=== PATIENT | male | born 1975 | race Caucasian/White ===

== ENCOUNTER 2016-12-31 22:53 | Emergency (ER) | payer MEDICAID ==
[~2016-12-31] VITALS: Ht 180.3 cm; Wt 84.9 kg
[~2016-12-31 22:53] MED LIST: TRAM50TA PO
[2016-12-31 23:01] VITALS: BP 136/82; PULSE 72; RESP 16; TEMP 99; O2SAT 97
--- NOTE | 2016-12-31 23:36 | PD ---
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 no other assoc symptoms, no alleviating/aggravating factors other than stated above PFSH Past Medical History Arthritis: No Asthma: No Bipolar Disorder: Yes Anxiety: Yes Depression: Yes Heart Rhythm Problems: No Cancer: No Cardiovascular Problems: No High Cholesterol: No Chemotherapy: No Chest Pain: No Congestive Heart Failure: No COPD: No Cerebrovascular Accident: No Diabetes: No Diminished Hearing: No Endocrine: No GERD: No Genitourinary: No Hepatitis: No Hiatal Hernia: No Immune Disorder: No Kidney Stones: No Musculoskeletal: No Neurologic: No Psychiatric: Yes (PTSD and Bipolar) Reproductive: No Respiratory: No Immunizations Current: Yes Migraines: No Radiation Therapy: No Renal Failure: No Seizures: No Sickle Cell Disease: No Sleep Apnea: No Thyroid Disease: No Ulcer: No Past Surgical History Abdominal Surgery: No AICD: No Arteriovenous Shunt: No Cardiac Surgery: No Ear Surgery: No Endocrine Surgery: No Eye Surgery: No Genitourinary Surgery: No Gynecologic Surgery: No Insulin Pump: No Joint Replacement: No Oral Surgery: Yes (NOSE SURGERY R/T INJURY) Pacemaker: No Thoracic Surgery: No Other Surgery: Yes (NOSE) Social History Alcohol Use: Yes (SOCIALLY) Tobacco Use: Yes (1 PPD) Substance Use: No Allergies-Medications (Allergen,Severity, Reaction): Coded Allergies: No Known Allergies (Verified , 12/31/16) Reported Meds & Prescriptions Reported Meds & Active Scripts Active No Active Prescriptions or Reported Medications Review of Systems Except as stated in HPI: all other systems reviewed are Neg Respiratory: Positive: Cough Physical Exam Narrative GENERAL: SKIN: Warm and dry. HEAD: Atraumatic. Normocephalic. EYES: Pupils equal and round. No scleral icterus. No injection or drainage. ENT: No nasal bleeding or discharge. Mucous membranes pink and moist. NECK: Trachea midline. No JVD. CARDIOVASCULAR: Regular rate and rhythm. RESPIRATORY: No accessory muscle use. Clear to auscultation. Breath sounds equal bilaterally. GASTROINTESTINAL: Abdomen soft, non-tender, nondistended. MUSCULOSKELETAL: Extremities without clubbing, cyanosis, or edema. No obvious deformities. NEUROLOGICAL: Awake and alert. No obvious cranial nerve deficits. Motor grossly within normal limits. Five out of 5 muscle strength in the arms and legs. Normal speech. PSYCHIATRIC: Appropriate mood and affect; insight and judgment normal. 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 Prov: Rafael Malcolm MD 12/31/16 Ondansetron Odt (Zofran Odt) 4 Mg Tab 4 MG SL Q6HR Y for Nausea/Vomiting, #30 TAB 0 Refills Prov: Rafael Malcolm MD 12/31/16 Disposition: 01 DISCHARGE HOME Condition: Stable Rafael Malcolm MD Dec 31, 2016 23:36
[2016-12-31 23:46] VITALS: RESP 18; O2SAT 97
[2016-12-31] MEDS ORDERED: ZITHTAB PO (23:55)
[2016-12-31] MEDS ORDERED: ZOFR4TAB3 SL (23:55)
[2017-01-01] MEDS ORDERED: AZITHROMYCIN 250 MG TAB PO ONE
[2017-01-01] MEDS ORDERED: ONDANSETRON ODT 4 MG TAB PO ONE
== END 2017-01-01 00:22 | disposition home or self-care (01) ==
LOC: PHED 22:53
DX: J20.9 Acute bronchitis, unspecified (principal); F17.200 Nicotine dependence, unspecified, uncomplicated
CPT/HCPCS: 99284

== ENCOUNTER 2017-01-15 09:32 | Emergency (ER) | payer MEDICAID ==
[~2017-01-15] VITALS: Ht 180.3 cm; Wt 84.0 kg
[~2017-01-15 09:32] MED LIST changes: -TRAM50TA PO; +ZITHTAB PO; +ZOFR4TAB3 SL
[2017-01-15 09:33] VITALS: BP 131/75; PULSE 64; RESP 16; TEMP 97.8; O2SAT 98
[2017-01-15] MEDS ORDERED: KETOROLAC TROMETHAMINE 60 MG/2 ML (IM) VIAL IM ONE (11:15)
--- NOTE | 2017-01-15 11:18 | PD ---
HPI Chief Complaint: Musculoskeletal Complaint Time Seen by Provider: 11:01 Travel History International Travel<30 days: No Contact w/Intl Traveler<30days: No Traveled to known affect area: No History of Present Illness HPI 41-year-old male with lower back pain and hip pain since Sunday after moving a refrigerator. He says that he was in the middle of moving a refrigerator and turned & twisted and ended up developing some pain in his lower back with some radiation on his right sacroiliac joint to his knee. Denies fevers, chills, chest pain, short of breath, abdominal pain, flank pain. He said this never happened before. He denies loss of bowel or bladder function and saddle anesthesia. Also states he is having pain in the right groin without radiation , bulging, or worsening pain. He says the pain is moderate and relieved with rest. PFSH Past Medical History Arthritis: No Asthma: No Bipolar Disorder: Yes Anxiety: Yes Depression: Yes Heart Rhythm Problems: No Cancer: No Cardiovascular Problems: No High Cholesterol: No Chemotherapy: No Chest Pain: No Congestive Heart Failure: No COPD: No Cerebrovascular Accident: No Diabetes: No Diminished Hearing: No Endocrine: No Gastrointestinal Disorders: No GERD: No Genitourinary: No Headaches: No Hepatitis: No Hiatal Hernia: No Heparin Induced Thrombocytopen: No Hypertension: No Immune Disorder: No Implanted Vascular Access Dvce: No Kidney Stones: No Musculoskeletal: No Neurologic: No Psychiatric: Yes (PTSD and Bipolar) Reproductive: No Respiratory: No Immunizations Current: Yes Migraines: No Radiation Therapy: No Renal Failure: No Seizures: No Sickle Cell Disease: No Sleep Apnea: No Thyroid Disease: No Ulcer: No Past Surgical History Abdominal Surgery: No AICD: No Arteriovenous Shunt: No Cardiac Surgery: No Ear Surgery: No Endocrine Surgery: No Eye Surgery: No Genitourinary Surgery: No Gynecologic Surgery: No Insulin Pump: No Joint Replacement: No Neurologic Surgery: No Oral Surgery: Yes (NOSE SURGERY R/T INJURY) Pacemaker: No Thoracic Surgery: No Other Surgery: Yes (NOSE) Social History Alcohol Use: Yes (SOCIALLY) Tobacco Use: Yes (1 PPD) Substance Use: No Allergies-Medications (Allergen,Severity, Reaction): Coded Allergies: No Known Allergies (Verified , 01/15/17) Reported Meds & Prescriptions Reported Meds & Active Scripts Active Tizanidine (Tizanidine HCl) 2 Mg Tab 2 Mg PO TID 5 Days Physical Exam Narrative GENERAL: Well-developed well-nourished appears older than stated age SKIN: Focused skin assessment warm/dry. HEAD: Atraumatic. Normocephalic. EYES: Pupils equal and round. No scleral icterus. No injection or drainage. ENT: No nasal bleeding or discharge. Mucous membranes pink and moist. NECK: Trachea midline. No JVD. CARDIOVASCULAR: Regular rate and rhythm. No murmur appreciated. RESPIRATORY: No accessory muscle use. Clear to auscultation. Breath sounds equal bilaterally. GASTROINTESTINAL: Abdomen soft, non-tender, nondistended. Hepatic and splenic margins not palpable. MUSCULOSKELETAL: No obvious deformities. No clubbing. No cyanosis. No edema. Right leg: Able to flex leg at the hip however with difficulty and grimace. Also has some pain to palpation in the right groin area. BACK: no step offs, mild TTP lower lumbar and SI joint region. no crepitus. NEUROLOGICAL: Awake and alert. No obvious cranial nerve deficits. Motor grossly within normal limits. Normal speech. Neurosensory intact. PSYCHIATRIC: Appropriate mood and affect; insight and judgment normal. Data Data Last Documented VS Vital Signs Date Time Temp Pulse Resp B/P (MAP) Pulse Ox O2 Delivery O2 Flow Rate FiO2 01/15/17 12:20 16 01/15/17 09:33 97.8 64 131/75 (93) 98 Orders Orders Spine, Lumbar - Ltd (Ap & Lat) (01/15/17 ) Ketorolac Inj (Toradol Inj) (01/15/17 11:15) Pelvis, Ap Only (Routine) (01/15/17 ) MDM Medical Decision Making Medical Screen Exam Complete: Yes Emergency Medical Condition: Yes Differential Diagnosis Acute lumbago versus sciatica versus herniated disc Narrative Course 41-year-old male with lower back pain and hip pain since Sunday after moving a refrigerator. He says that he was in the middle of moving a refrigerator and turned & twisted and ended up developing some pain in his lower back with some radiation on his right sacroiliac joint to his knee. Denies fevers, chills, chest pain, short of breath, abdominal pain, flank pain. He said this never happened before. He denies loss of bowel or bladder function and saddle anesthesia. Also states he is having pain in the right groin without radiation , bulging, or worsening pain. He says the pain is moderate and relieved with rest. Imaging demonstrated no acute process. This is likely sciatica, piriformis syndrome, or muscle spasms. I reassured patient and informed him that this pain should be reduced within a couple of days with light stretching and muscle relaxers. I cautioned him on the side effects of muscle relaxers. He should follow up with his PCP. I advised him when to return to the ED. Diagnosis Primary Impression: Acute back pain Qualified Codes: M54.41 - Lumbago with sciatica, right side Departure Forms: Tests/Procedures, Work Release Enter return to work date: Jan 19, 2017 Additional Instructions: Follow-up with her primary care physician for further treatment and evaluation. There were no fractures on the xrays. If your back pain persists or worsens, or you develop increased numbness tingling and weakness of your legs, return to the emergency department for further treatment & evaluation. Recommend light stretches and heat. May use motrin or tylenol for pain relief per package instructions. Use the muscle relaxer sparingly for muscle spasms in leg. This medication may cause drowsiness. Scripts Tizanidine (Tizanidine) 2 Mg Tab 2 MG PO TID for Muscle Spasm for 5 Days, #15 TAB 0 Refills Prov: Marisa Hunter 01/15/17 Disposition: 01 DISCHARGE HOME Condition: Stable Marisa Hunter Jan 15, 2017 11:18
--- NOTE | 2017-01-15 11:42 | RADRPT ---
EXAM DATE/TIME: 01/15/2017 11:25 [facility] COMPARISON: No previous studies available for comparison. INDICATIONS : Right groin pain after moving furniture MEDICAL HISTORY : None. SURGICAL HISTORY : None. ENCOUNTER: Initial ACUITY: 3 days PAIN SCORE: 6/10 LOCATION: Right inguinal FINDINGS: Two view examination was performed. There are five non-rib bearing vertebral bodies. The vertebral bodies are in normal alignment without evidence of subluxation or scoliosis. The disc spaces are marija ntained. The pedicles are intact. Bony mineralization is normal. No fracture is identified. CONCLUSION: 1. No acute fracture or subluxation. Adrien Quiñones MD on January 15, 2017 at 11:40 Board Certified Radiologist. This report was verified electronically.
--- NOTE | 2017-01-15 11:43 | RADRPT ---
EXAM DATE/TIME: 01/15/2017 11:27 [facility] COMPARISON: No previous studies available for comparison. INDICATIONS : Low back pain after moving furniture. MEDICAL HISTORY : None. SURGICAL HISTORY : None. ENCOUNTER: Initial ACUITY: 3 days PAIN SCORE: 6/10 LOCATION: Right inguinal FINDINGS: A single frontal view of the pelvis demonstrates no evidence of fracture. The bony pelvic ring is in tact. Bony mineralization is normal. Small calcification in the pelvis likely reflects a phlebolith . The soft tissues are intact. CONCLUSION: 1. No acute fracture or dislocation. Adrien Quiñones MD on January 15, 2017 at 11:41 Board Certified Radiologist. This report was verified electronically.
[2017-01-15] MEDS ORDERED: TIZA2TAB PO (12:13)
[2017-01-15 12:20] VITALS: RESP 16
== END 2017-01-15 12:30 | disposition home or self-care (01) ==
LOC: PHED 09:32 → PHEFT 12:30
DX: M54.41 Lumbago with sciatica, right side (principal)
CPT/HCPCS: 72100; 72170; 96372; 99284; J1885

== ENCOUNTER 2017-05-21 12:48 | Emergency (ER) | payer SELFPAY ==
[~2017-05-21] VITALS: Ht 180.3 cm; Wt 81.5 kg
[~2017-05-21 12:48] MED LIST changes: +TIZA2TAB PO; -ZITHTAB PO; -ZOFR4TAB3 SL
[2017-05-21 12:51] VITALS: BP 134/76; PULSE 77; RESP 16; TEMP 98.1; O2SAT 98
[2017-05-21] MEDS ORDERED: AZIT250T3 PO (14:46)
--- NOTE | 2017-05-21 14:46 | PD ---
HPI Chief Complaint: Cold / Flu Symptoms Time Seen by Provider: 14:19 Travel History International Travel<30 days: No Contact w/Intl Traveler<30days: No Traveled to known affect area: No History of Present Illness HPI This is a 41-year-old male here with productive cough times one week. He is reporting green colored phlegm. No chest pain or shortness of breath. Subjective fevers. Symptom severity is moderate. No aggravating or alleviating factors. PFSH Past Medical History Arthritis: No Asthma: No Bipolar Disorder: Yes Anxiety: Yes Depression: Yes Heart Rhythm Problems: No Cancer: No Cardiovascular Problems: No High Cholesterol: No Chemotherapy: No Chest Pain: No Congestive Heart Failure: No COPD: No Cerebrovascular Accident: No Diabetes: No Diminished Hearing: No Endocrine: No Gastrointestinal Disorders: No GERD: No Genitourinary: No Headaches: No Hepatitis: No Hiatal Hernia: No Heparin Induced Thrombocytopen: No Hypertension: No Immune Disorder: No Implanted Vascular Access Dvce: No Kidney Stones: No Musculoskeletal: No Neurologic: No Psychiatric: Yes (PTSD and Bipolar) Reproductive: No Respiratory: No Immunizations Current: Yes Migraines: No Radiation Therapy: No Renal Failure: No Seizures: No Sickle Cell Disease: No Sleep Apnea: No Thyroid Disease: No Ulcer: No Tetanus Vaccination: > 5 Years Influenza Vaccination: No Past Surgical History Abdominal Surgery: No AICD: No Arteriovenous Shunt: No Cardiac Surgery: No Ear Surgery: No Endocrine Surgery: No Eye Surgery: No Genitourinary Surgery: No Gynecologic Surgery: No Insulin Pump: No Joint Replacement: No Neurologic Surgery: No Oral Surgery: Yes (NOSE SURGERY R/T INJURY) Pacemaker: No Thoracic Surgery: No Other Surgery: Yes (NOSE) Social History Alcohol Use: Yes (SOCIALLY) Tobacco Use: Yes (1 PPD) Substance Use: No Allergies-Medications (Allergen,Severity, Reaction): Coded Allergies: No Known Allergies (Verified Adverse Reaction, Unknown, 05/21/17) Reported Meds & Prescriptions Reported Meds & Active Scripts Active No Active Prescriptions or Reported Medications Review of Systems Except as stated in HPI: all other systems reviewed are Neg General / Constitutional: Positive: Fever HENT: No: Headaches Cardiovascular: No: Chest Pain or Discomfort Respiratory: Positive: Cough Gastrointestinal: No: Abdominal Pain Genitourinary: No: Dysuria Physical Exam Narrative GENERAL: Alert and well-appearing 41-year-old male. SKIN: Warm and dry. No rash HEAD: Normocephalic. EYES: No injection or drainage. Ear/nose/throat: No TM erythema. Clear nasal discharge. Mild pharyngeal erythema without tonsillar hypertrophy or exudate. NECK: Supple. No meningismus CARDIOVASCULAR: Regular rate and rhythm RESPIRATORY: Breath sounds equal bilaterally. No accessory muscle use. Rhonchorous cough GASTROINTESTINAL: Abdomen soft, non-tender, nondistended. MUSCULOSKELETAL: No cyanosis, or edema. BACK: No CVA tenderness. Data Data Last Documented VS Vital Signs Date Time Temp Pulse Resp B/P (MAP) Pulse Ox O2 Delivery O2 Flow Rate FiO2 05/21/17 12:51 98.1 77 16 134/76 (95) 98 MDM Medical Decision Making Medical Screen Exam Complete: Yes Emergency Medical Condition: Yes Differential Diagnosis Bronchitis, pneumonia, influenza Narrative Course 41-year-old male here with reported productive cough and fever 1 week. He is nontoxic appearing. He'll be treated with azithromycin Diagnosis Primary Impression: Bronchitis Referrals: Primary Care Physician Departure Forms: Tests/Procedures, Work Release Enter return to work date: May 23, 2017 Additional Instructions: Medication as directed. Rest and stay well hydrated. Scripts Azithromycin (Azithromycin) 250 Mg Tab 250 MG PO DIRECTED for Infection, #6 TAB 0 Refills Take 2 tabs (500 mg) on day 1 then 1 tab daily x 4 days. Prov: Dee Dee Bauman 05/21/17 Disposition: 01 DISCHARGE HOME Condition: Stable Dee Dee Bauman May 21, 2017 14:46
== END 2017-05-21 14:59 | disposition home or self-care (01) ==
LOC: PHEFT 12:48
DX: J40 Bronchitis, not specified as acute or chronic (principal); F17.210 Nicotine dependence, cigarettes, uncomplicated
CPT/HCPCS: 96372; 99283

== ENCOUNTER 2017-08-20 09:57 | Emergency (ER) | payer SELFPAY, OTHER | END 2017-08-20 10:52 | disposition home or self-care (01) | LOC: PHEFT 09:57 | DX: L02.411 Cutaneous abscess of right axilla (principal); F31.9 Bipolar disorder, unspecified; F41.9 Anxiety disorder, unspecified; F43.10 Post-traumatic stress disorder, unspecified; F17.200 Nicotine dependence, unspecified, uncomplicated | CPT/HCPCS: 10060; 99283-25 ==